=== PATIENT | female | born 1990 | race Caucasian/White ===

== ENCOUNTER 2019-03-23 23:25 | Inpatient (IN) | payer MEDICAID ==
[~2019-03-23] VITALS: Ht 172.7 cm; Wt 59.9 kg
[2019-03-23 23:28] VITALS: BP 101/74
--- NOTE | 2019-03-23 23:33 | NUR ---
PT AMBULATED W/ MOTHER TO BED 6, SAFETY PRECAUTIONS IMPLEMENTED.
--- NOTE | 2019-03-23 23:37 | NUR ---
DR. MCCLURE AT BEDSIDE.
--- NOTE | 2019-03-23 23:38 | NUR ---
PT BIB SELF W/ SISTER FOR SI. PER PT SHE HAS BEEN FEELING OVERWHELMED/STRESSED FOR THE PAST FOR DAYS. PT HAS HX OF DEPRESSION AND ANXIETY, NO MEDS. PT CUT HER WRIST THIS AM. SUPERFICIAL CUTS NOTED TO LEFT WRIST , NO ACTIVE BLEEDING. PT PLACED IN HOPSITAL GOWN, BELONGINGS GIVEN TO SECURITY. PT IS CALM, BUT TEARFUL, FOLLOWS COMMANDS.
--- NOTE | 2019-03-23 23:46 | NUR ---
TELEPSYCH REQUEST SENT
[2019-03-24 00:04] LABS: BASOPHILS # (AUTO) 0.1 K/uL (0.00-0.22); BASOPHILS % (AUTO) 0.6 % (0.0-2.0); EOSINOPHILS # (AUTO) 0.3 K/uL (0-0.4); HEMATOCRIT 39.8 % (36-48); HEMOGLOBIN 13.2 g/dL (12.0-16.0); LYMPHOCYTES # (AUTO) 2.1 K/uL (2.5-16.5); LYMPHOCYTES % (AUTO) 24.6 % (20.5-51.1); MEAN CORPUSCULAR HEMOGLOBIN 29 pg (27-31); MEAN CORPUSCULAR HGB CONC 33 g/dL (33-37); MEAN CORPUSCULAR VOLUME 88.9 fL (80-94); MONOCYTES # (AUTO) 0.5 K/uL (0.8-1.0); MONOCYTES % (AUTO) 5.6 % (1.7-9.3); NEUTROPHILS # (AUTO) 5.7 K/uL (1.8-7.7); NEUTROPHILS % (AUTO) 66.2 % (42.2-75.2); PLATELET COUNT (AUTO) 225 K/uL (140-450); RED BLOOD CELL COUNT(AUTO) 4.48 MIL/uL (4.20-5.40); RED CELL DISTRIBUTION WIDTH 13.3 % (11.6-13.7); WHITE BLOOD COUNT (AUTO) 8.6 K/uL (4.8-10.8)
[2019-03-24 00:05] LABS: ANION GAP 13.7 (8-16); CARBON DIOXIDE 26.8 mmol/L (21-32); CHLORIDE 103 mmol/L (98-107); CREATININE 0.8 mg/dL (0.6-1.3); GFR ARICAN-AMERICAN 112 mL/min (>90); GLUCOSE 92 mg/dL (74-106); POTASSIUM 3.5 mmol/L (3.5-5.1); SODIUM SERUM 140 mmol/L (136-145); UREA NITROGEN, BLOOD 10 mg/dL (7-18)
[2019-03-24 00:10] LABS: ASPARTATE AMINOTRANSFERASE 10 U/L (15-37); TOTAL BILIRUBIN 0.3 mg/dL (0.0-1.0)
[2019-03-24 00:11] LABS: ACETAMINOPHEN < 0.5 ug/ml (10-30); SALICYLATE < 2.8 mg/dL (2.8-20.0)
[2019-03-24 00:39] LABS: APPEARANCE,URINE CLEAR (CLEAR); BILIRUBIN,URINE NEGATIVE (NEGATIVE); BLOOD, URINE NEGATIVE (NEGATIVE); COLOR,URINE YELLOW (YELLOW); LEUKOCYTE ESTERASE ,URINE 1+ (NEGATIVE); NITRITE, URINE NEGATIVE (NEGATIVE); UGLUCOSE NEGATIVE (NEGATIVE)
--- NOTE | 2019-03-24 00:45 | NUR ---
DR. ROMERO RECOMMENDING [address] MCCLURE MADE AWARE OF RECOMMENDATIONS.
[2019-03-24 00:46] LABS: BARBITURATE, URINE NEG. ng/ml (NEG <=200); BENZODIAZEPINE, URINE NEG. ng/mL (NEG <=200); CANNABINOID, URINE NEG. ng/mL (NEG <=50); COCAINE, URINE NEG. ng/mL (NEG <=300); OPIATE, URINE NEG. ng/mL (NEG <=2000); PHENCYCLIDINE SCREEN,URINE NEG. ng/mL (NEG <=25)
--- NOTE | 2019-03-24 00:50 | NUR ---
PT ASLEEP. VISIBLE CHEST RISE AND FALL. ALL NEEDS MET AT THIS TIME. EMT AT BEDSIDE FOR 1:1 MONITORING. WILL CONTINUE TO MONITOR.
[2019-03-24 00:53] LABS: RBC,URINE 0-5 /HPF (0-5)
[2019-03-24] MEDS ORDERED: LORazepam 1 MG TAB PO ONE (01:00)
[2019-03-24] MEDS ORDERED: CIPROFLOXACIN 250 MG TAB PO ONE (01:00)
--- NOTE | 2019-03-24 02:10 | NUR ---
PT AWAKE, SITTING QUIETLY. EMT AT BEDSIDE 1:1 MONITORING. VSS. WILL CONTINUE TO MONITOR.
[2019-03-24] MEDS ORDERED: ONDANSETRON 4 MG/2 ML VIAL IVP PRN (02:20)
[2019-03-24] MEDS ORDERED: ACETAMINOPHEN 325 MG TAB PO PRN (02:20)
[2019-03-24] MEDS ORDERED: HYDROcodone/APAP 7.5/325 MG 1 TAB PO PRN (02:20)
--- NOTE | 2019-03-24 02:35 | NUR ---
Patient will be admitted to care of Dr. Kim. Admited to [facility]. Will go to room 110A. Belongings list completed. VSS at time of transport. Report to HARRY Worthington. Transfer of care at this time.
[2019-03-24 02:40] VITALS: BP 96/54
--- NOTE | 2019-03-24 02:40 | NUR ---
RECEIVED BEDSIDE REPORT FROM ER NURSE DAV. PATIENT IS AWAKE, ALERT, AND COOPERATIVE. CC SUICIDAL IDEATION. ADMITTING DIAGNOSIS SUICIDAL IDEATION. PER PATIENT STATED THAT SHE'S BEEN FEELING STRESS AND DEPRESSED LATELY. PLACE SITTER AT BEDSIDE. PATIENT RESPIRATION EVEN UNLABORED ON ROOM AIR. SKIN IS WARM AND DRY. MULTIPLE ABRASION TO THE LEFT WRIST NOTED. IV PATENT AND INTACT. MRSA SCREEN DONE. VITALS WERE TAKEN. ORIENT PATIENT TO ROOM, STAFF, AND CALL LIGHT. PLAN OF CARE WAS DISCUSSED. ALL SAFETY MEASURES IN PLACE. BED IS AT LOW POSITION. WILL CONTINUE TO MONITOR.
[2019-03-24 02:49] LABS: CHOL/HDL RATIO 2.5 (1-4.5); FREE T4 (FREE THYROXINE) 1.05 ng/dL (0.76-1.46); MAGNESIUM 2.1 mg/dL (1.8-2.4); PHOSPHORUS 4.2 mg/dL (2.5-4.9); THYROID STIMULATING HORMONE 3.76 uIU/mL (0.34-3.74)
--- NOTE | 2019-03-24 03:30 | NUR ---
PATIENT SLEEPING COMFORTABLY RESPIRATION EVEN UNLABORED ON ROOM AIR. NO DISTRESS NOTED. SITTER AT BEDSIDE. WILL CONTINUE TO MONITOR.
--- NOTE | 2019-03-24 04:00 | NUR ---
ADMINISTERED IV ANTIBIOTIC PER ORDER. PATIENT TOLERATING IT WELL. WILL CONTINUE TO MONITOR.
[2019-03-24] MEDS ORDERED: cefTRIAXone 1,000 MG VIAL ONE (04:11)
--- NOTE | 2019-03-24 07:20 | NUR ---
ENDORSED PATIENT TO BILLING SPECIALIST NURSE. PATIENT IS STABLE AT THIS TIME
--- NOTE | 2019-03-24 07:29 | NUR ---
RECEIVED BED SIDE REPORT FROM RESIDENTIAL MORTGAGE UNDERWRITER HARRY BARBER. PT SLEEPING, SALINE LOCK ON L AC 20G. LEFT WRIST COVERED WITH DRESSING. LUCIUS PSYCH CONSULT. BP 88/48 WHEN TAKEN THE FIRST TIME. GAVE HER 500CC NS BOLUS. BP WENT UP TO 100/74. CIVIL PREPAREDNESS TRAINING OFFICER JOWIE NOTIFIED. WILL NOTIFY RESIDENT. WILL CONTINUE TO MONITOR
[2019-03-24 08:00] VITALS: BP 100/74
--- NOTE | 2019-03-24 08:32 | NUR ---
PATIENT HAS BEEN SCREENED AND CATEGORIZED LOW NUTRITION RISK. PATIENT WILL BE SEEN WITHIN 7 DAYS OF ADMISSION. 03/30/[address]
[2019-03-24] MEDS ORDERED: BACITRACIN OINT 15000 UNITS/30 GM TUBE TP SCH (09:00)
[2019-03-24] MEDS ORDERED: DOCUSATE SODIUM 100 MG GELCAP PO SCH (09:00)
[2019-03-24] MEDS ORDERED: BACITRACIN OINT 500 UNITS/GM PKT TP SCH (09:00)
[2019-03-24] MEDS ORDERED: ESCITALOPRAM 20 MG TAB PO SCH (09:00)
--- NOTE | 2019-03-24 09:48 | NUR ---
GAVE PT AM MEDS AND EXPLAINED WHY SHE IS RECEIVING THEM AND S/E OF MEDS. PT VERBALIZED UNDERSTANDING. PT IS SALINE LOCK. FLUSHES WELL, GOOD BLOOD RETURN. PT HAS ORANGE JUICE NEXT TO HER. WILL CONTINUE TO MONITOR
--- NOTE | 2019-03-24 11:59 | NUR ---
PT SLEEPING, SITTER AT BEDSIDE
--- NOTE | 2019-03-24 14:00 | NUR ---
RECEIVED CALL FROM [facility] FROM [facility] PHONE NUMBER . SHE SAID TO CALL AND GIVE REPORT TO SAPNA MILLER AT . PT IS TO GO TO [address] AT 1700.
[2019-03-24] MEDS ORDERED: ESCI20TA47 PO (16:03)
[2019-03-24] MEDS ORDERED: ROC1PM IV (16:03)
[2019-03-24] MEDS ORDERED: LACT10CA1 PO (16:03)
[2019-03-24] MEDS ORDERED: CEPH250C16 PO (16:10)
--- NOTE | 2019-03-24 16:30 | NUR ---
PT MADE AWARE THAT SHE WILL BE TRANSFERRED TO [facility]. PT SIGNED PAPER WORK AND EDUCATED HER ON THE MEDS SHE SHOULD START. EDUCATED HER ON S/E, PT VERBALIZED UNDERSTANDING. TOOK IV OUT, NO BLEEDING NOTED. PT CHANGED INTO HER NORMAL CLOTHES. PT IN STABLE CONDITION. EMT IS HERE TO PICK HER UP. GAVE THEM REPORT ON PT. APPLIED BACITRACIN OINTMENT TO HER SUPERFICIAL ABRASION CUTS ON HER LEFT WRIST. VS STABLE AND APPEARS IN NO DISTRESS.
--- NOTE | 2019-03-24 16:30 | NUR ---
CALLED SISTER MOOSE AND NOTIFIED HER OF PT BEING TRANSFERRED TO FACILITY. SISTER VERBALIZED UNDERSTANDING
--- NOTE | 2019-03-27 08:42 | NUR ---
Patient's therapist, Merced, from [facility] returned phone call from [facility]. Merced requested information regarding patient's admission and discharge. [facility] faxed information to [phone] for Merced to coordinate follow-up appointments for patient. [facility]/CAITLYN will follow up as needed.
== END 2019-03-24 16:30 | DRG 384 ==
LOC: MED 23:25 → MTU 03-24 02:18
PROVIDERS: ADMIT General Practice; ATTEND General Practice
DX: S61.512A Laceration without foreign body of left wrist, initial encounter (principal); R45.851 Suicidal ideations; N39.0 Urinary tract infection, site not specified; E02 Subclinical iodine-deficiency hypothyroidism; F32.9 Major depressive disorder, single episode, unspecified; F41.9 Anxiety disorder, unspecified; X78.8XXA Intentional self-harm by other sharp object, initial encounter; Y93.89 Activity, other specified; Y92.89 Other specified places as the place of occurrence of the external cause; Y99.8 Other external cause status
CPT/HCPCS: 36415; 80053; 80305; 81001; 83036; 83735; 84100; 84439; 84443; 85025; 87081; 87086; 93005; 99285; G0480; G0482; J0696; J7060